=== PATIENT | male | born 1980 | race African-American/Black ===

== ENCOUNTER 2017-06-20 22:11 | Emergency (ER) | payer SELFPAY ==
[~2017-06-20] VITALS: Ht 177.8 cm; Wt 88.5 kg
[2017-06-20 22:49] VITALS: BP 137/74
[2017-06-21] MEDS ORDERED: HYDROcodone-ACET 10/325MG TAB PO ONE (00:45)
== END 2017-06-21 01:12 | disposition home or self-care (01) ==
LOC: ER 22:11
DX: M77.12 Lateral epicondylitis, left elbow (principal)
CPT/HCPCS: 73090; 73110; 73130

== ENCOUNTER 2017-07-11 00:12 | Emergency (ER) | payer SELFPAY ==
[~2017-07-11] VITALS: Ht 177.8 cm; Wt 90.7 kg
[2017-07-11 00:47] VITALS: BP 146/84
[2017-07-11] MEDS ORDERED: TRIAMCINOLONE 40MG/ML 1ML VIAL IM ONE (04:00)
[2017-07-11] MEDS ORDERED: LIDOCAINE 1% (LOCAL ANESTH.) PF 5ml SDV IJ ONE (04:15)
== END 2017-07-11 04:19 | disposition home or self-care (01) ==
LOC: ER 00:12
DX: M54.16 Radiculopathy, lumbar region (principal)
CPT/HCPCS: 20550; 72100; 96372; 99284; J3301